=== PATIENT | male | born 1980 | race Caucasian/White ===

== ENCOUNTER 2024-02-15 07:54 | Emergency (ER) | payer BC, SELFPAY ==
[2024-02-15 08:09] VITALS: BP 158/96
[2024-02-15 08:32] LABS: % Basophils 0.4 % (0-2); % Eosinophils 0.5 % (0-6); % Immature Granulocytes 0.3 % (0-0.5); % Lymphocytes 10.4 % (20.5-51.1); % Monocytes 4.3 % (1.7-9.3); % Neutrophils 84.1 % (42.2-75.2); Absolute Eosinophils 0.1 10^3/uL (0-0.7); Absolute Monocytes 0.4 10^3/uL (0.1-0.6); Absolute Neutrophils 8.2 10^3/uL (1.4-6.5); Hematocrit 46.6 % (39.0-52.0); Hemoglobin 16.8 g/dL (13.0-18.0); Mean Corp Hgb Conc. 36.1 g/dL (33.0-37.0); Mean Corpuscular Hgb 31.7 pg (27.0-31.0); Mean Corpuscular Volume 87.9 fL (80.0-94.0); Nucleated Red Blood Cells % 0 % (-); Platelet Count 220 10^3/uL (130-400); Red Cell Dist. Width 12.1 % (11.5-14.5); White Blood Cell Count 9.7 10^3/uL (4.8-10.8)
[2024-02-15 08:50] LABS: ALT (SGPT) 44 U/L (0-50); AST (SGOT) 34 U/L (17-59); Albumin 4.4 g/dl (3.5-5.0); Alkaline Phosphatase 87 U/L (38-126); Blood Urea Nitrogen 20 mg/dl (9-20); Calcium 9.7 mg/dl (8.4-10.2); Carbon Dioxide 27 mmol/L (22-30); Chloride 105 mmol/L (98-107); Glucose 149 mg/dl (70-99); Potassium 4.5 mmol/L (3.5-5.1); Sodium 141 mmol/L (135-145); Total Bilirubin 0.7 mg/dl (0.2-1.3); Total Protein 7.5 g/dl (6.3-8.2); eGFR > 60.00
--- NOTE | 2024-02-15 10:12 | ED.GENMED ---
History of Present Illness
General
Chief Complaint: Flank Pain
Source: patient
Exam Limitations: none
Time Seen by Provider: 02/15/24 10:04
Nursing documentation reviewed up to this point in time: agreed with
Travel History
Have you had any contact with someone who has COVID-19?: No
Do you have any symptoms of coronavirus? Fever > 100 degrees, chills, cough, shortness of breath, sore throat, loss of taste or smell, muscle aches, or headache?: No
History of Present Illness
History of Present Illness:
43-year-old male past medical history of hypertension previous testicular cancer kidney stones presenting to the emergency department today with concerns of left flank pain over the past 8 hours has had nausea vomiting and sharp severe left-sided
flank pain. Feels similar to previous kidney stones. Denies any chest pain shortness of breath or fevers.
Past History
Past History
ED Past Medical History: Other (kidney stones with a stent) and Other (Testicular cancer)
ED Past Surgical History: Other (Surgery to left testicle)
Social History
Tobacco: Smoker
Alcohol: Occasional
Personal:
Living: with family
Family History
Family History: Other (Kidney stones)
Review of Systems
Review of Systems
Allergies reviewed?: Yes
All Other Systems: ROS reviewed and negative except as documented in HPI and ROS
Phy Exam
Physical Exam
Physical Exam:
GENERAL: Alert , in no apparent distress
EYE: pupils equal and reactive
NECK: Supple, no significant adenopathy.
ENT: o/p clr, mmm.
CARDIAC: Regular rate and rhythm .
LUNGS: Clear breath sounds bilaterally, no acute respiratory distress, no wheezes/rales/rhonchi
ABDOMEN: Soft, without focal tenderness, no r/g, no cvat
NEUROLOGICAL: Alert and oriented, no focal neuro deficits
SKIN: Warm and dry, skin intact.
MUSCULOSKELETAL: No edema, well perfused.
PSYCH: Normal and appropriate interaction.
Course
Orders/Labs/Results
Orders:
Orders
02/15/24 08:18
Complete Blood Count/With Diff Urgent
Comprehensive Metabolic Panel Urgent
02/15/24 08:24
CT Abd/pel Without Iv Or Oral Urgent
Comment:
Reason For Exam: left flank pain
02/15/24 10:05
Urinalysis Reflex To Culture Urgent
Date Specimen was Collected: 02/15/24
Time Specimen was Collected: 08:13
Urine Microscopic Reflex Cult Urgent
02/15/24 10:10
IV Insert/Care/Rem.- Treatment PRN
0.9% Sodium Chloride 1000 ml [Nss] 1,000 ml IV BOLUS
Ketorolac [Toradol] 30 mg IV NOW STA
Ondansetron Injectable [Zofran] 4 mg IV NOW STA
Tamsulosin [Flomax] 0.4 mg PO NOW STA
Abnormal Lab Results
02/15/24 02/15/24
08:18 10:05
MCH 31.7 H pg
(27.0-31.0)
Absolute Neuts (auto) 8.2 H 10^3/uL
(1.4-6.5)
Absolute Lymphs (auto) 1.0 L 10^3/uL
(1.2-3.4)
Neutrophils % 84.1 H %
(42.2-75.2)
Lymphocytes % 10.4 L %
(20.5-51.1)
Glucose 149 H mg/dl
(70-99)
Ur Occult Blood Reflex 4+ A
(Negative)
02/15/24 08:18
02/15/24 08:18
Vital Signs
Initial and Last Documented VS:
Initial Vital Signs
Temp Pulse Resp BP Pulse Ox
98.7 F 63 18 158/96 98
02/15/24 08:09 02/15/24 08:09 02/15/24 08:09 02/15/24 08:09 02/15/24 08:09
Last Documented Vital Signs
Temp Pulse Resp BP Pulse Ox
98.7 F 63 18 158/96 98
02/15/24 08:09 02/15/24 08:09 02/15/24 08:09 02/15/24 08:09 02/15/24 08:09
MDM/Problems Addressed
MDM/Problems Addressed:
43-year-old male presenting to the emergency department today with concerns of left leg pain. Patient was found to have a 4 mm left-sided distal ureter stone some hydro. Labs unremarkable no white count normal renal function. Patient was given
Toradol Zofran fluids and Flomax. Urinalysis without signs of infection. Patient without signs of complication stable for outpatient management symptoms well-controlled here will follow-up close with urology and return precautions were given.
*Critical Care Note
Total Time (30-74mins, 75-104mins- exclusive of procedures): Not Applicable
ED Attending Note
-
Portions of this chart may have been created with voice recognition software.� Occasional wrong word or��sound alike� substitutions may have occurred due to the inherent limitations of voice recognition software.
Discharge Plan
Departure
Patient Disposition: Home (Routine Discharge)
Date of Disposition: 02/15/24
Time of Disposition: 11:10
Patient with high blood pressure during this ER visit?: No
Condition: Good
Covid-19: Not Applicable
Discharge Problem:
Kidney stone
Instructions: Kidney Stones (DC), How to Strain Your Urine
Prescriptions:
New
ibuprofen 600 mg tablet
600 mg PO Q8H PRN (Reason: Pain) Qty: 14 0RF
ondansetron 4 mg tablet,disintegrating
4 mg PO Q8H PRN (Reason: nausea and vomiting) Qty: 7 0RF
tamsulosin [Flomax] 0.4 mg capsule
0.4 mg PO HS Qty: 10 0RF
No Action
pegfilgrastim [Neulasta] 6 MG syringe
1 ea SC PRN PRN (Reason: chemotherapy)
Chemotherapy
1 ea IV .[id number]
Nausea Medication
1 ea PO PRN PRN (Reason: nausea)
Patient Comments:
pt is not sure which nausea medication it is
diclofenac potassium 50 MG tablet
50 mg PO BID Qty: 20 0RF
diazepam 2 MG tablet
2 mg PO BID PRN (Reason: neck spasm) Qty: 14 0RF
doxycycline hyclate 100 mg capsule
100 mg PO BID 10 Days Qty: 20 0RF
Referrals:
Samuel Jimenez MD [Active] - Follow up in 5-7 days
Activity Restrictions/Additional Instructions:
You came to the emergency department today with concerns of left flank pain. You were found to have a 4 mm distal ureteral stone. Please take the prescribed medications to help with symptoms. Please stay very hydrated and follow-up close with
urology. Return to the emergency department for any worsening, new or concerning symptoms.
Interventions
Interventions:
*Risk Screen - Suicide Last Done: 02/15/24 08:11
*General Assessment Last Done: 02/15/24 08:11
*Neglect/Abuse Screening Last Done: 02/15/24 08:11
Discharge Date and Time
Print Language: AMHARIC
[2024-02-15 10:16] LABS: Urine Albumin Negative (Neg - Trace); Urine Bilirubin Negative (Negative); Urine Character Clear (Clear); Urine Color Yellow; Urine Glucose Negative (Negative); Urine Ketone Negative (Negative); Urine Leukocyte Negative (Negative); Urine Nitrite Negative (Negative); Urine Occult Blood 4+ (Negative); Urine Urobilinogen Negative (Neg - 1+)
[2024-02-15] MEDS: ZOFRAN 4 MG IV (10:16)
[2024-02-15] MEDS: TORADOL 30 MG IV (10:16)
[2024-02-15] MEDS: FLOMAX 0.400000000000000022 MG PO (10:16)
[2024-02-15] MEDS: NSS 1000 IV (10:19)
[2024-02-15 11:22] LABS: Urine Bacteria Few (Negative); Urine Red Blood Cell 90-100 /HPF (0-2)
== END 2024-02-15 11:44 | disposition home or self-care (01) ==
LOC: EMR 07:54
PROVIDERS: Emergency Medicine; EMERGENCY PHYSICIAN Emergency Medicine
DX: R10.9 Unspecified abdominal pain (principal); R11.2 Nausea with vomiting, unspecified; I10 Essential (primary) hypertension; F17.200 Nicotine dependence, unspecified, uncomplicated; Z85.47 Personal history of malignant neoplasm of testis; Z85.528 Personal history of other malignant neoplasm of kidney; Z87.442 Personal history of urinary calculi
CPT/HCPCS: 99284; 96374; 96375; 96361; 74176; 80053; 81003; 81015; 85025